=== PATIENT | male | born 1950 | race Caucasian/White ===

== ENCOUNTER 2018-09-02 08:46 | Day surgery (SDC) | payer OTHER, MEDICARE ==
[2018-09-01 15:59] VITALS: BMI 23.0
[2018-09-02 10:21] VITALS: TEMP 98.3
[2018-09-02 12:15] VITALS: BP 130/65; PULSE 60
--- NOTE | 2018-09-03 13:22 | PATH ---
Surgical Pathology Report Patient Name: KJ ASH [facility]. Rec. #: [id number] /Age/Gender: 1950 (Age: 68) / M Account: [id number] Location: [facility]-ENDOSCOPY Taken: 09/02/2018 Received: 09/02/2018 Reported: 09/03/2018 Physicians: Jesus Meraz M.D. Specimen(s) Received BX BARRETTS ESOPHAGUS Clinical History Barretts esophagus, colon screening Postoperative diagnosis: Crandall's esophagus, normal colon Final Diagnosis CRANDALL'S ESOPHAGUS, BIOPSY: SQUAMOCOLUMNAR MUCOSA WITH MILD CHRONIC INFLAMMATION AND CHANGES OF MODERATE REFLUX ESOPHAGITIS. INTESTINAL METAPLASIA PRESENT CONSISTENT WITH CRANDALL'S ESOPHAGUS IN A CONCORDANT CLINICAL SETTING. NO DYSPLASIA IDENTIFIED. Electronically Signed Rebekah Power M.D. Gross Description Received in formalin, labeled "biopsy Crandall's esophagus" are 4 harkins, irregular portions of soft tissue ranging from 0.1-0.5 cm. in greatest dimension. The specimens are submitted in toto in one cassette. /09/02/2018 saudi09/02/2018
== END 2018-09-02 11:54 | disposition home or self-care (01) ==
LOC: JASU-ENDO 08:46
PROVIDERS: ATTEND Internal Medicine Gastroenterology
PROC: 0DJD8ZZ Inspection of Lower Intestinal Tract, Via Natural or Artificial Opening Endoscopic (ICD-10-PCS; 2018-09-02)
PROC: 0DB48ZX Excision of Esophagogastric Junction, Via Natural or Artificial Opening Endoscopic, Diagnostic (ICD-10-PCS; principal; 2018-09-02 09:30)
DX: Z12.11 Encounter for screening for malignant neoplasm of colon (principal); K21.0 Gastro-esophageal reflux disease with esophagitis
CPT/HCPCS: 43239; G0121; 88305-TC

== ENCOUNTER 2022-09-13 04:29 | Day surgery (SDC) | payer OTHER, MEDICARE ==
[2022-09-11 12:01] VITALS: BMI 23.1
[2022-09-13 10:21] VITALS: BP 110/72; PULSE 77; RESP 16; TEMP 98
== END 2022-09-13 10:59 | disposition home or self-care (01) ==
LOC: JASU-ENDO 04:29
PROVIDERS: ATTEND Internal Medicine Gastroenterology
PROC: 0DB78ZX Excision of Stomach, Pylorus, Via Natural or Artificial Opening Endoscopic, Diagnostic (ICD-10-PCS; 2022-09-13)
PROC: 0DB38ZX Excision of Lower Esophagus, Via Natural or Artificial Opening Endoscopic, Diagnostic (ICD-10-PCS; principal; 2022-09-13 09:30)
DX: K22.70 Barrett's esophagus without dysplasia (principal); K21.00 Gastro-esophageal reflux disease with esophagitis, without bleeding; K29.50 Unspecified chronic gastritis without bleeding
CPT/HCPCS: 88305-TC; 88342-TC